=== PATIENT | female | born 1930 | race Caucasian/White ===

== ENCOUNTER 2017-10-30 14:27 | Emergency (ER) | payer OTHER ==
[~2017-10-30] VITALS: Ht 152.4 cm; Wt 79.4 kg
[~2017-10-30 14:27] MED LIST: ACTONEL150 MG PO; AMBIEN 5 MG TABL5 M1 PO; AMOXICILLIN 50500 MG PO; ANASPAZ0.125 MG SL; ANASTROZOLE1 MG PO; ASPIR 8181 MG PO; ASPIRIN EC81 M1 PO; BENTYL 10 MG CA10 MG; CALCIUM 500 +1 EAC5 PO; CALCIUM OYSTER500 MG PO; CARDIZEM CD240 MG PO; CLARITIN10 MG PO; DILTIAZEM ER180 M1 PO; FOSAMAX 70 MG T70 MG PO; LEVSIN0.125 MG PO; LOSARTAN-HCTZ1 EAC3 PO; MOBIC7.5 MG PO; MULTIVITAMINS1 EAC7 PO; OMEGA-31000 MG PO; ONGLYZA2.5 MG PO; PARAFON FORTE500 M2 PO; PROAIR RESPICL90 MCG IH; SIMVASTATIN10 MG PO; TOPROL XL200 MG PO; TRAMADOL 50 MG50 MG PO; TRAMADOL HCL50 MG PO; ZOLPIDEM TART12.5 M1 PO
[2017-10-30] MEDS ORDERED: HYDROCODONE-AP1 EAC6 PO (16:07)
[2017-10-30 16:17] VITALS: BP 164/78
== END 2017-10-30 16:19 | disposition home or self-care (01) ==
LOC: ER 14:27
DX: S52.591A Other fractures of lower end of right radius, initial encounter for closed fracture (principal); I10 Essential (primary) hypertension; E11.9 Type 2 diabetes mellitus without complications; Z88.6 Allergy status to analgesic agent; W18.49XA Other slipping, tripping and stumbling without falling, initial encounter; Y93.89 Activity, other specified; Y92.89 Other specified places as the place of occurrence of the external cause; Y99.8 Other external cause status

== ENCOUNTER 2017-11-06 05:17 | Day surgery (SDC) | payer OTHER ==
[~2017-11-06] VITALS: Ht 149.9 cm; Wt 84.8 kg
--- NOTE | ~2017-11-06 | O ---
[address] [address] OPERATIVE REPORT Name: ALIVIA JUAREZ Room #: 150-2 [facility]..#: [id number] Admission: 11/06/17 Attend Phys: Eliud Polo MD Discharge: Date of : 32 Report #: [id number] THIS REPORT FOR: //name// CC: Maura Ana Polo DATE OF SERVICE: 11/06/2017. SERVICE: Orthopedics. FACILITY: [facility]. SURGEON: Eliud Polo MD. CRANBERRY BOG SUPERVISOR: None. PREOPERATIVE DIAGNOSIS: Displaced comminuted intraarticular right distal radius fracture. POSTOPERATIVE DIAGNOSIS: Displaced comminuted intraarticular right distal radius fracture. PROCEDURE: Open reduction and internal fixation, right distal radius fracture. COMPLICATIONS: None. DRAINS: None. SPECIMENS: None. SURGEON: Dr. Polo. ANESTHESIA TYPE: General. ESTIMATED BLOOD LOSS: 10 mL. FINDINGS: 1. Accumed 6-hole distal plate utilized. 2. Multiple planes of x-ray to confirm appropriate positioning with extraarticular screw placement. HISTORY AND INDICATIONS: The patient is an 86-year-old female who sustained a fall last week. She had a severely comminuted displaced right distal radius fracture and was placed in a splint Emergency Room and was sent to for followup. She had risks, benefits, alternatives and indications for surgical versus nonsurgical treatment explained to her and elected to undergo open reduction and internal fixation based on the proceed benefits of surgical [address] [address] OPERATIVE REPORT Name: ALIVIA JUAREZ Room #: [facility]2 [facility]#: [id number] Admission: 11/06/17 Attend Phys: Eliud Polo MD Discharge: Date of : 32 Report #: [id number] fixation. Risks, benefits, alternatives and indications for surgery were discussed with her in detail, risks include but not limited to pain, bleeding, infection, injury to nerves or blood vessels, persistent pain despite surgical intervention, failure of any repairs, reconstructions, progression of any preexisting chondral injury, stiffness, need for further surgery as well as complications related to anesthesia such as stroke, heart attack, pulmonary complications, thromboembolic disease and . We also discussed malunion and nonunion. Despite the risks, she wished to proceed. DESCRIPTION OF PROCEDURE: After the right upper extremity was correctly identified as the operative extremity, the patient was taken to the operating room where general anesthesia was induced without complication. She was padded appropriately. Prophylactic antibiotics were administered at appropriate time. Right upper extremity was then prepped and draped in standard sterile fashion. Time-out procedure was performed. An Esmarch was used to exsanguinate and the tourniquet was inflated to 200 mmHg. A standard volar approach to the wrist was made through the flexor carpi radialis tendon sheath. The FPL was identified and was retracted allowing access to the pronator quadratus and the watershed line which was palpated and visualized. The soft tissue was then reflected off of the volar cortex of the distal radius and the fracture was visualized and exposed. There was a highly comminuted distal radius fracture that was shortened and displaced. There was a free lunate facet articular fragment, which was removed, hematoma was irrigated and then this fragment was placed back into the joint to support the carpus. The plate was provisionally fixed to the shaft and the reduction maneuver was performed and provisional fixation was achieved. The radial styloid was actually displaced still due to both the coronal and sagittal fracture line and so I adjusted the plate, performed reduction maneuver on the radius styloid specifically, re-fixed the plate to appropriate position and then placed a radial styloid screws using fluoroscopy to assist, then the distal rows screws were placed and throughout multiple planes of C-arm were used to confirm that the screws did not penetrate the articular surface. Then, the final screws were completed in the distal segment and then the shaft screws were completed as well. Final x-rays were taken, then the wound was copiously irrigated. The pronator quadratus and fascia was closed over the volar aspect of the plate with 0 Vicryl suture. The skin was closed with 3-0 Vicryl followed by 3-0 nylon. At this point, a 20mL injection was performed with a 50:50 mixture of 0.25% bupivacaine and 1% lidocaine without epinephrine and sterile dressing was applied followed by a short arm well-padded splint. The patient was awakened from anesthesia and taken to recovery room in stable condition. There were no complications and all counts were recorded as correct. <ELECTRONICALLY SIGNED> By: Eliud Polo MD 11/06/17 1039 1005 1033 Eliud Polo MD /nt
--- NOTE | ~2017-11-06 | EKG ---
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
[~2017-11-06 05:17] MED LIST changes: +HYDROCODONE-AP1 EAC6 PO; +KEPPRA 500 MG500 M1 PO
[2017-11-06 06:30] VITALS: BP 142/67
[2017-11-06 06:44] LABS: CALCIUM 9.6 mg/dL (8.5-10.1); CREATININE 0.9 mg/dL (0.6-1.0); POTASSIUM 3.8 mmol/L (3.5-5.1)
[2017-11-06 10:26] VITALS: BP 142/67
== END 2017-11-06 10:52 | disposition home or self-care (01) ==
LOC: OR 05:17 → TBA 05:17 → OR 10:52
PROVIDERS: Orthopaedic Surgery Sports Medicine
DX: S52.571A Other intraarticular fracture of lower end of right radius, initial encounter for closed fracture (principal); I10 Essential (primary) hypertension; E11.9 Type 2 diabetes mellitus without complications; Z85.3 Personal history of malignant neoplasm of breast; Z90.710 Acquired absence of both cervix and uterus; Z87.440 Personal history of urinary (tract) infections; Z98.890 Other specified postprocedural states; Z88.6 Allergy status to analgesic agent; Z79.82 Long term (current) use of aspirin; Z79.899 Other long term (current) drug therapy; Z79.891 Long term (current) use of opiate analgesic; X58.XXXA Exposure to other specified factors, initial encounter; Y93.89 Activity, other specified; Y92.89 Other specified places as the place of occurrence of the external cause; Y99.8 Other external cause status
CPT/HCPCS: 50010; 50101; 50386; 51736; 55430; 56526; 56527; 56528; 57091; 62110; 62900; 70005

== ENCOUNTER 2017-11-09 13:19 | Inpatient (IN) | payer OTHER ==
[~2017-11-09] VITALS: Ht 149.9 cm; Wt 80.7 kg
--- NOTE | ~2017-11-09 | EKG ---
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: CARLITO : 1930 Requested By: Lori Mckoy Order Number: [id number] MD: Brian Luna Measurements Intervals [place] Rate: 94 P: 45 RI: 158 QRS: -7 QRSD: 82 T: 33 QT: 353 QTc: 442 Interpretive Statements Sinus rhythm Probable left atrial enlargement Probable left ventricular hypertrophy Inferior infarct, old Compared to ECG 11/06/2017 06:33:28 No change Electronically Signed On 11-10-2017 9:46:04 RADIO INTERFERENCE TROUBLE SHOOTER by Brian Luna [email or web address] <ELECTRONICALLY SIGNED> By: Brian Luna MD 11/10/17 0946 1348 1348 MD ALEX Sarah
--- NOTE | ~2017-11-09 | HC ---
[facility] [place] [address] CONSULTATION Name: ALIVIA JUAREZ Room #: 430-P ADM IN M.R.#: [id number] Admission: 11/09/17 Attend Phys: Enrique Parker Discharge: Date of : 32 Report #: [id number] THIS REPORT FOR: //name// CC: Maura Parker TYPE OF REPORT: Pulmonary consultation. REFERRING PHYSICIAN: Enrique Parker M.D. REASON FOR REFERRAL: Hypoxia. HISTORY OF PRESENT ILLNESS: The patient is an 86-year-old white female presented to the Emergency Room with dyspnea. A pulmonary consultation was requested. She states that she fell in about a week ago while she was at a bingo. She underwent a wrist surgery a few days ago. By yesterday she began to develop chest pain and dyspnea. For that reason, she presented to the Emergency Room. CT chest angiogram was negative for pulmonary embolus. A small left upper lobe nodule was seen measuring less than 1 cm in diameter. No infiltrates were noted. Presently, she feels better. She denies any productive cough, night sweats or chills. The patient also states that for the past several years. She has had trouble with wheezing whenever she developed bronchitis. She will get wheezes with exertion particularly when she goes down to the basement. She has never been diagnosed with asthma. The patient states that she has never smoked but has been exposed to extensive secondhand smoke from a family including her and her father. PAST MEDICAL HISTORY: Notable for recent fall as mentioned above, sustaining a right wrist injury, status post surgery, hypertension and seizure disorder in 2016. PAST SURGICAL HISTORY: Left breast lumpectomy, felt to be benign; hysterectomy and left thigh lesion excision. ALLERGIES: TRAMADOL, which causes seizure disorder. HOME MEDICATIONS: Diltiazem, Ambien, simvastatin, losartan, Toprol, Mobic, aspirin, Levsin and Keppra. FAMILY HISTORY: Noncontributory. [facility] [address] [place] [address] CONSULTATION Name: ALIVIA JUAREZ Room #: 430-P [facility] IN M.R.#: [id number] Admission: 11/09/17 Attend Phys: Enrique Parker Discharge: Date of : 32 Report #: [id number] SOCIAL HISTORY: She has never smoked but has been exposed to extensive secondhand smoke as mentioned above. She denies any alcohol use. REVIEW OF SYSTEMS: As mentioned above, otherwise 10-point system review negative. PHYSICAL EXAMINATION: GENERAL: She is awake and alert, in no apparent distress. VITAL SIGNS: Temperature is 98 degrees Fahrenheit, pulse is 67, respiratory rate is 20, blood pressure 130/51 mmHg and saturation 100%. HEENT: Normocephalic and atraumatic. NECK: Supple, without any lymphadenopathy or thyromegaly. CHEST: Breath sounds are moderate with mild expiratory wheezes. No obvious rales. CARDIOVASCULAR: Normal S1 and S2. There are no murmurs or gallops. There is no JVD. There is no carotid bruit. Pulses are 2+/4+ bilaterally. ABDOMEN: Soft and nontender. No organomegaly or masses felt. GENITOURINARY: Deferred. RECTAL: Deferred. EXTREMITIES: There is no edema, cyanosis or clubbing. The right upper extremity is in a cast. LABORATORY DATA: CT chest angiogram as mentioned above showing no evidence of pulmonary embolus or infiltrates. A small left upper lobe nodule is seen measuring 4 mm in diameter. It is located in the lateral part of the left upper lobe. Electrolytes are normal. WBC 5500, hemoglobin is 12.8, platelets are normal and no evidence of bandemia. Arterial blood gas revealed pH 7.41, pCO2 of 59 and pO2 44 on room air. IMPRESSION: 1. Acute respiratory failure. Arterial blood gas suggests chronic hypercapnia along with acute hypoxia. The patient has no known chronic lung disease or sleep disordered breathing other than history of bronchitis, resulting in bronchospasm. The chronic hypercapnia suggests possible hypoventilation syndrome including sleep disorders. I do not think it is related to obstructive lung disease. 2. Bronchospasm and dyspnea. The patient may have a component of asthma with possible bronchitis. She has long history of bronchitis associated with wheezing and dyspnea. Outpatient pulmonary function will be helpful. 3. Recent surgery involving the right wrist. No evidence of pulmonary embolus. RECOMMENDATIONS: Agree with current care including corticosteroids, bronchodilators, and antibiotics. We will repeat arterial blood gas. With a recent surgery and hypoventilation related to narcotic use may be the cause. [address] [address] CONSULTATION Name: ALIVIA JUAREZ Room #: 430-P [facility] IN M.R.#: [id number] Admission: 11/09/17 Attend Phys: Enrique Parker Discharge: Date of : 32 Report #: [id number] DVT and GI prophylaxis will be addressed. Thank you for the consultation. <ELECTRONICALLY SIGNED> By: Jack Chester MD 11/11/17 1600 1441 0022 Jack Chester MD /nt
[2017-11-09 13:20] VITALS: BP 147/69
[2017-11-09 13:47] LABS: HEMATOCRIT 37.6 % (37.0-47.0); HEMOGLOBIN 12.8 gm/dL (12.0-15.0); MANUAL DIFF YES; MCH 29.5 pg (26.0-34.0); MCV 86.8 fL (80.0-100.0); PLATELET COUNT 234 thou/uL (150-400); RBC 4.33 mil/uL (4.20-5.00); RDW 13.7 % (10.5-14.5); WBC 5.5 thou/uL (4.0-11.0)
[2017-11-09 13:56] LABS: ANION GAP 7 mmol/L (7-16); BUN 25 mg/dL (7-18); CALCIUM 8.9 mg/dL (8.5-10.1); CHLORIDE 93 mmol/L (98-107); CO2 35 mmol/L (21-32); CREATININE 0.9 mg/dL (0.6-1.0); GLUCOSE 149 mg/dL (74-106); SODIUM 135 mmol/L (136-145)
[2017-11-09 14:04] LABS: TROPONIN-I < 0.04 ng/mL (<0.06)
[2017-11-09 14:10] LABS: ABSOLUTE NEUTROPHILS 4.6 thou/uL (1.4-8.2); TOTAL CELL COUNT 100
[2017-11-09 15:35] LABS: URINE BILIRUBIN NEGATIVE (Negative); URINE BLOOD NEGATIVE (Negative); URINE COLOR YELLOW; URINE GLUCOSE-RANDOM* NEGATIVE (Negative); URINE KETONES NEGATIVE (Negative); URINE LEUKOCYTES-REFLEX NEGATIVE (Negative); URINE PROTEIN (DIPSTICK) 1+ (Negative); URINE UROBILINOGEN 0.2 E.U./dl (0.2-1.0)
[2017-11-09 15:38] LABS: SQUAMOUS >10 Many /LPF (0-3)
[2017-11-09 15:39] LABS: CRYSTALS None Seen /LPF (None Seen); HYALINE CASTS 0-3 Few /LPF (None Seen); URINE RBC 0-2 Rare /HPF (0-2); URINE WBC-REFLEX 0-5 Rare /HPF (0-5)
[2017-11-09 16:37] VITALS: BP 137/55
[2017-11-09 16:54] LABS: ABG SAMPLE TYPE ARTERIAL; BE(vivo) 10.7 mmol/L (-2 to +3); HCO3 37.5 mmol/L (22.0-26.0); LACTATE 1.12 mmol/L (0.5-2.0); O2(CT) 14.3 mL/dL (15.0-23.0); O2Hb 78.3 % (92.0-98.0); PCO2 59.9 mmHg (35.0-45.0); STICK SITE L.RADIAL; pH 7.415 (7.360-7.450); sO2 79.2 % (92.0-98.0); tCO2 39.4 mmol/L (24.0-30.0)
[2017-11-09 17:18] VITALS: BP 130/62
[2017-11-09 17:54] VITALS: BP 161/67
[2017-11-09 20:00] VITALS: BP 144/63
[2017-11-10 04:30] VITALS: BP 130/43
[2017-11-10 07:45] VITALS: BP 130/51
[2017-11-10 21:38] VITALS: BP 145/51
[2017-11-10 23:54] VITALS: BP 121/51
[2017-11-11 03:31] VITALS: BP 135/63
[2017-11-11 05:24] LABS: ABG SAMPLE TYPE ARTERIAL; BE(vivo) 9.6 mmol/L (-2 to +3); LACTATE 1.09 mmol/L (0.5-2.0); O2(CT) 16.3 mL/dL (15.0-23.0); O2Hb 93.5 % (92.0-98.0); PCO2 57.4 mmHg (35.0-45.0); pH 7.415 (7.360-7.450); sO2 94.5 % (92.0-98.0); tCO2 37.7 mmol/L (24.0-30.0)
[2017-11-11 05:26] LABS: STICK SITE L.RADIAL
[2017-11-11 07:49] VITALS: BP 144/66
[2017-11-11 15:17] VITALS: BP 129/52
[2017-11-12 03:00] VITALS: BP 149/58
[2017-11-12 04:38] VITALS: BP 158/75
[2017-11-12 09:01] VITALS: BP 151/67
[2017-11-12] MEDS ORDERED: CEFUROXIME500 MG PO (10:16)
[2017-11-12] MEDS ORDERED: PREDNISONE 20 M20 MG PO (10:17)
[2017-11-12] MEDS ORDERED: BACTRIM DS TAB1 EACH PO (10:23)
[2017-11-12 10:53] VITALS: BP 151/67
[2017-11-12 11:01] VITALS: BP 151/67
== END 2017-11-12 16:05 | disposition home health service (06) | DRG 871 ==
LOC: ER 13:19 → EROBS 16:36 → 4E 16:36 → ENTRNSPT 11-12 14:56 → 4E 11-12 16:05
PROVIDERS: Emergency Medicine; Internal Medicine Pulmonary Disease
DX: A41.9 Sepsis, unspecified organism (principal); J96.02 Acute respiratory failure with hypercapnia; J96.01 Acute respiratory failure with hypoxia; N39.0 Urinary tract infection, site not specified; E66.2 Morbid (severe) obesity with alveolar hypoventilation; J20.9 Acute bronchitis, unspecified; E11.9 Type 2 diabetes mellitus without complications; I10 Essential (primary) hypertension; E78.5 Hyperlipidemia, unspecified; S62.101A Fracture of unspecified carpal bone, right wrist, initial encounter for closed fracture; G40.909 Epilepsy, unspecified, not intractable, without status epilepticus; Z77.22 Contact with and (suspected) exposure to environmental tobacco smoke (acute) (chronic); Z79.899 Other long term (current) drug therapy; Z22.322 Carrier or suspected carrier of Methicillin resistant Staphylococcus aureus; Z90.710 Acquired absence of both cervix and uterus; Z88.8 Allergy status to other drugs, medicaments and biological substances; W18.39XA Other fall on same level, initial encounter; Y93.89 Activity, other specified; Y92.89 Other specified places as the place of occurrence of the external cause; Y99.8 Other external cause status; Z68.35 Body mass index [BMI] 35.0-35.9, adult
CPT/HCPCS: 10183

== ENCOUNTER → 2019-05-25 | Outpatient (CLI) | payer OTHER ==
[~2019-05-25] MED LIST changes: +BACTRIM DS TAB1 EACH PO; +CEFUROXIME500 MG PO; +PREDNISONE 20 M20 MG PO
== END ==
LOC: RAD 09:35
DX: J44.9 Chronic obstructive pulmonary disease, unspecified (principal); I11.9 Hypertensive heart disease without heart failure; Z88.6 Allergy status to analgesic agent

== ENCOUNTER → 2020-07-15 | Outpatient (CLI) | payer OTHER ==
[~2020-07-15] MED LIST changes: +LORCET 5-325 M1 EACH PO; +PRAVACHOL 20 MG20 M1 PO; +PROAIR HFA8.5 GM INH; +ROPINIROLE HCL2 MG PO; +TRAZODONE HCL100 MG PO
== END ==
LOC: LAB 08:19
PROVIDERS: ATTEND Surgery
DX: Z01.812 Encounter for preprocedural laboratory examination (principal); Z20.828 Contact with and (suspected) exposure to other viral communicable diseases

== ENCOUNTER 2020-07-20 08:13 | Day surgery (SDC) | payer OTHER ==
[~2020-07-20] VITALS: Ht 149.9 cm; Wt 81.6 kg
--- NOTE | ~2020-07-20 | O ---
[facility] [place] [address] OPERATIVE REPORT Name: ALIVIA JUAREZ Room #: 150-4 [facility]#: [id number] Admission: 07/20/20 Attend Phys: Americo Velásquez MD Discharge: Date of : 32 Report #: [id number] THIS REPORT FOR: cc: Maura Perez MD,Maura Velásquez,Americo Guerrero MD ~ CC: Maura Velásquez DATE OF SERVICE: 07/20/2020 PREOPERATIVE DIAGNOSIS: Recently diagnosed right breast cancer, invasive ductal carcinoma, measuring about 1.7 cm. POSTOPERATIVE DIAGNOSIS: Recently diagnosed right breast cancer, invasive ductal carcinoma, measuring about 1.7 cm. PROCEDURES PERFORMED: Right lumpectomy, right sentinel node biopsy. ANESTHESIA: General anesthesia. COMPLICATIONS: None. ESTIMATED BLOOD LOSS: 20 mL. PROCEDURE NOTE: With the patient under general anesthesia, the right breast and axilla was prepped and draped in sterile fashion. Prior to the prep, I listened to the axilla with the Neoprobe and there was no significant activity detected in the axilla. The nuclear activity was identified at the site of injection in a periareolar area. I went ahead and placed 2 mL of Lymphazurin in the subcutaneous subdermal tissue and subareolar. Massage was performed. Then, the breast was prepped and draped. Timeout was performed. The patient did receive preoperative IV antibiotic. The tumor mass was identified preoperatively with ultrasound. This was marked with the ultrasound. The ellipse of skin over this was excised. Dissection was carried superiorly, medially, laterally and then inferiorly. The skin was from the underlying breast tissue and subcutaneous tissue. Dissection was carried to the upper margins and then dissected downward. Fascia was excised adjacent to the mass. The lumpectomy was completed. Specimen was sent to Radiology. The clip was identified in the biopsy site. The breast lumpectomy specimen was oriented for pathology with a short stitch superiorly, long stitch laterally. The skin was left over the mass. Hemostasis obtained. Dissection was then carried out for the axillary lymph node. Again, no significant activity was heard with the Neoprobe. Incision was made about 4 cm in the axilla. The edge of the pectoralis muscle was identified. This then led to the axillary content. Dissection of the [address] [address] OPERATIVE REPORT Name: ALIVIA JUAREZ Fei Room #: 150-4 [facility]..#: [id number] Admission: 07/20/20 Attend Phys: Americo Velásquez MD Discharge: Date of : 32 Report #: [id number] axilla did reveal a lymphatic channel with the dye in it. This led to the sentinel node edge area. The node did not have any color and also had very low activity on the Neoprobe, about reading of 10. There appears to be two lymph node here, one is pretty fatty replaced and the other one is small and fairly hard feeling, albeit a calcified node. Lymph node was sent to pathologist. On touch prep, both of these were negative. The lymph node was found to be calcified making this hard. No obvious metastasis. Irrigation was performed, hemostasis obtained. A clip had been used to divide a small vessel superiorly and then also clipped around the side of the lymph node. Hemostasis obtained. The subcutaneous tissue was closed. An axillary envelope was closed with 3-0 PDS. Skin was closed with 5-0 PDS. The subcutaneous and the lumpectomy site was also closed with 3-0 PDS. Skin was closed with 4-0 PDS. Dermabond was applied, 4 x 4 dressing was applied. The patient tolerated the procedure well and was taken to recovery room. By: 2138 2154 Americo Velásquez MD /nt
--- NOTE | ~2020-07-20 | H ---
[facility] [place] [address] HISTORY AND PHYSICAL Name: ALIVIA UJAREZ Room #: 150-4 [facility]#: [id number] Admission: 07/20/20 Attend Phys: Americo Velásquez MD Discharge: Date of : 32 Report #: [id number] THIS REPORT FOR: cc: Maura Perez MD,Maura Velásquez,Americo Guerrero MD ~ CC: Maura Velásquez DATE OF SERVICE: 07/20/2020 PREOPERATIVE DIAGNOSIS: Right breast cancer, recently diagnosed. PATIENT'S HISTORY: The patient is an 89-year-old who is here for lumpectomy after recently being found to have a mass in her right breast, which is measured around 1.6 cm. Ultrasound-guided biopsy was performed, which did show an invasive ductal carcinoma. ER/MS is highly positive, HER-2 negative and Ki67 is low at 2%. The patient did have an MRI performed and the lesion is isolated. No other abnormality identified. This was measured at 1.7 cm. The mass is palpable and she is here for lumpectomy. I did not recommend a mastectomy since this tumor is pretty high in the upper inner part of the breast at the 1 o'clock position. The patient does understand that she may need to have radiation treatment after this. 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 Lumpectomy was performed and did not require radiation treatment. PAST MEDICAL HISTORY: The patient has a history of asthma. She uses oxygen at night. Possible sleep apnea. PATIENT'S MEDICATIONS: She is on olmesartan 40/12.5, Keppra 500 mg, metoprolol for blood pressure, meloxicam, pravastatin, Telzen for blood pressure. She takes Lasix, hydrocodone, hyoscyamine as needed. Albuterol inhaler, trazodone. ALLERGIES: SHE IS ALLERGIC TO TRAMADOL. PAST SURGICAL HISTORY: Left lumpectomy. FAMILY HISTORY: Possibly her mother had breast cancer. SOCIAL HISTORY: The patient does not smoke or drink. REVIEW OF SYSTEMS: No chest pain, shortness of breath or palpitation. PHYSICAL EXAMINATION: GENERAL: The patient is an elderly female, in no acute distress. [address] [address] HISTORY AND PHYSICAL Name: ALIVIA JUAREZ Room #: 150-4 [facility] M..#: [id number] Admission: 07/20/20 Attend Phys: Americo Velásquez MD Discharge: Date of : 32 Report #: [id number] HEENT: Pupils are reactive to light. Extraocular muscles are intact. NECK: Soft and supple. She does have a left forehead lesion with a scab over it. LUNGS: Clear to auscultation. No active wheezes. HEART: Regular rate and rhythm. No murmur or gallop. ABDOMEN: Soft, nondistended, nontender. BREAST: The patient does have an atrophic breast. The mass is a 1 o'clock position and upper inner quadrant. Fairly far from the nipple areolar complex. No supraclavicular or axillary adenopathy. She did have an almost mirror image scar on the left, which was from the lumpectomy for the DCIS on that side. EXTREMITIES: No cyanosis, clubbing or edema. IMPRESSION: The patient with a newly identified mass of the left breast on mammogram. This was biopsied, came back with invasive ductal carcinoma, probably 1.7 cm in size. She is here for left lumpectomy, sentinel node biopsy. The patient understands treatment. She does not really want to have a mastectomy and technically mastectomy is more difficult due to the location of the lesion being high up in her breast. The patient understands that she may have to have radiation treatment after this. This on MRI does shows fairly close to the chest wall. We will likely excise a portion of the chest wall with this. By: 0825 0849 Americo Velásquez MD /nt
[~2020-07-20 08:13] MED LIST changes: -LORCET 5-325 M1 EACH PO
[2020-07-20 08:48] LABS: HEMATOCRIT 42.8 % (37.0-47.0); HEMOGLOBIN 14.5 gm/dL (12.0-15.0)
[2020-07-20 09:02] LABS: CALCIUM 9.5 mg/dL (8.5-10.1); CREATININE 0.8 mg/dL (0.6-1.0)
[2020-07-20 12:13] VITALS: BP 159/73
[2020-07-20] MEDS ORDERED: LORCET 5-325 M1 EACH PO (14:17)
--- NOTE | 2020-07-20 14:42 | EKG ---
[facility] [place] [address] ELECTROCARDIOGRAM REPORT Name: ALIVIA JUAREZ Room #: 150-4 [facility]..#: [id number] Admission: 07/20/20 Attend Phys: Americo Velásquez MD Discharge: Date of : 32 Report #: [id number] THIS REPORT FOR: cc: Maura Perez MD, Cora A. MD Lammoglia, Francisco J. 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1930 Requested By: Americo Velásquez Order Number: [id number] MD: Gonzalo Sierra Measurements Intervals [place] Rate: 69 P: 21 CA: 205 QRS: -10 QRSD: 98 T: 24 QT: 429 QTc: 460 Interpretive Statements Sinus rhythm Early transition CA at the upper limits of normal Nonspecific ST-T wave Compared to ECG 11/09/2017 13:48:26 Initial deflection in 3 aVF are positive different than prior tracing Electronically Signed On 07-20-2020 14:42:29 CDT by Gonzalo Sierra [email or web address] <ELECTRONICALLY SIGNED> By: Gonzalo Sierra MD 07/20/20 1442 1 0852 Gonzalo Sierra MD /EPI
[2020-07-20 14:49] VITALS: BP 159/73
--- NOTE | 2020-07-27 11:07 | PATH ---
[facility] [place] [address] PATHOLOGY RPT PROCEDURE Name: HELENA JUAREZ Room #: DEP [facility].#: [id number] Admission: 07/20/20 Date of : 34 Discharge: 07/20/20 Report #: [id number] Path Case #: [id number] [facility] Accession Number: [id number] . 01 Material submitted: . PART A: lymph node - RIGHT SENTINEL NODE. Modifiers: right PART B: breast - RIGHT BREAST MASS SHORT STITCH SUPERIOR, LONG STITCH LATERAL. Modifiers: right . 01 Clinical history: . LUMPECTOMY WITH AXILLARY NODE DISECTION/NUC/LY RIGHT BREAST CANCER . 02 Frozen section diagnosis: . FROZEN SECTION DIAGNOSIS: (Cuca Davidson M.D.): . TPA1 and FSA1. Right sentinel lymph node, biopsy: - Two lymph nodes; one calcified node limiting frozen section (touch preparation made for this reason). - No macrometastases identified on FS slide. . Findings of this case are discussed with Dr. Americo Velásquez and a written report is placed in the patient's chart. . Frozen section performed at [facility], [facility] [address], [place] [address]. . . FROZEN SECTION GROSS DESCRIPTION: Specimen A is received fresh from the OR labeled with the patient's name, and "right sentinel node" consists of a fragment of fatty tissue which upon further dissection shows a 1.8 x 1.5 x 1.0 cm fatty replaced node and a 1.1 x 1.1 x 1.0 cm oval calcified node. Both nodes are bisected, a touch preparation is made and one-half of each node is submitted for frozen section as FSA1, this is subsequently submitted for permanent sections as A1. The unfrozen portion is submitted entirely for permanent sections only as A2. (IUV/db; 07/20/2020) IZV/LBQ . 02 Diagnosis: A. Lymph nodes (2), right sentinel node, dissection: - Two lymph nodes showing reactive changes. - Negative for isolated tumor cells, micrometastases or macrometastases. . B. Breast, right, right breast lumpectomy: - INVASIVE MODERATELY DIFFERENTIATED DUCTAL ADENOCARCINOMA, [address] [address] PATHOLOGY RPT PROCEDURE Name: HELENA JUAREZ Room #: DEP [facility].#: [id number] Admission: 07/20/20 Date of : 34 Discharge: 07/20/20 Report #: [id number] Path Case #: [id number] GRADE II/III, MEASURING 1.8 CM IN GREATEST DIMENSION. - FOCAL PERINEURAL INVASION IDENTIFIED. - Negative for lymph-vascular space invasion. - Margins of resection free of malignancy; closest anterior and posterior margins are 0.8 cm away. - Overlying skin showing reactive changes. (IUV/db; 07/26/2020) . . Surgical Pathology Cancer Case Summary . Protocol posting date: December 2019 . INVASIVE CARCINOMA OF THE BREAST: . . Specimen Identification Procedure ___ Excision (less than total mastectomy) . Specimen Laterality ___ Right . Tumor Site: Clock position: 1 o'clock . Tumor Size ___ Greatest dimension of largest invasive focus >1 mm (millimeters): 18 mm . Histologic Type ___ Invasive carcinoma of no special type (ductal, not otherwise specified) . Histologic Grade (Dundas Histologic Score) Glandular (Acinar)/Tubular Differentiation ___ Score 3 (<10% of tumor area forming glandular/tubular structures) Nuclear Pleomorphism ___ Score 2 (cells larger than normal with open vesicular nuclei, visible nucleoli, and moderate variability in both size and shape) Mitotic Rate ___ Score 1 (< or equal to 3 mitoses per mm2) . Tumor Focality ___ Single focus of invasive carcinoma . 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 Tumor Extension Skin ___ Not involved . Nipple ___ Not applicable/ not sampled . Margins . Invasive Carcinoma Margins (required only if residual invasive carcinoma is present in specimen) ___ Uninvolved by invasive carcinoma Distance from closest margin (millimeters): 8mm Specify closest margin: anterior and posterior . DCIS Margins (required only if DCIS is present in specimen) ___ Uninvolved by DCIS (required only if residual DCIS is present in specimen) Distance from closest margin (millimeters): 20 mm Specify closest margin: anterior . . Regional Lymph Nodes . ___ Uninvolved by tumor cells Number of Lymph Nodes Examined: 2 Number of [place]t Nodes Examined:2 . Treatment Effect ___ No known presurgical therapy . Lymphovascular Invasion ___ Not identified . Dermal Lymphovascular Invasion ___ Not identified . Pathologic Stage Classification (pTNM, AJCC 8th Edition) Note: Reporting of pT, pN, and (when applicable) pM categories is based on information available to the pathologist at the time the report is issued. . Primary Tumor (Invasive Carcinoma) (pT) ___ pT1c: Tumor >10 mm but < or equal to 20 mm in greatest dimension . [address] [address] PATHOLOGY RPT PROCEDURE Name: HELENA JUAREZ Room #: DEP [facility] Nevaeh#: [id number] Admission: 07/20/20 Date of : 34 Discharge: 07/20/20 Report #: [id number] Path Case #: [id number] Category (pN) ___ (sn): [place] node(s) evaluated ___ pN0: No regional lymph node metastasis identified . Distant Metastasis (pM) (required only if confirmed pathologically in this case) ___ pMx: Unknown LBQ 07/26/2020 1737 Local . 02 Comment: Properly controlled AE1/AE3 immunohistochemical stains are performed on blocks A1 and A2 and show no isolated tumor cells, micrometastases or macrometastases. (IUV/db; 07/26/2020) . 02 Electronically signed: . Cuca Davidson MD, Pathologist NPI- [id number] . 01 Gross description: . A. SEE FROZEN SECTION GROSS DESCRIPTION. . B. The specimen is received in formalin, labeled "Helena Juarez, right breast, short superior, long lateral". Received is a 78 g oriented lumpectomy specimen measuring 7.4 cm from medial to lateral, 6.8 cm from superior to inferior, and 3.6 cm from anterior to posterior. There is no attached ellipse of pale gonsalez, grossly unremarkable skin measuring 5.4 x 1.7 cm. The specimen is inked as follows: Superior-blue, inferior-green, lateral-red, medial-yellow, anterior (surrounding the skin)-black, posterior-orange. The specimen is sectioned from lateral to medial aspects revealing a pale pink to white stellate mass, with a metallic biopsy coil present, measuring 1.8 x 1.6 x 1.0 cm in greatest dimensions. This mass is 2.4 cm from the lateral margin, 3.2 cm from the medial margin, 0.8 cm from the anterior margin, 1.0 cm from the posterior margin, 3.5 cm from the superior margin, and 0.9 cm from the inferior margin. The remainder of the specimen displays bright yellow fibrofatty cut surfaces with no additional nodules or lesions noted grossly. The specimen is submitted representatively as follows: . B1-B2 entire lateral margin, bisected B3-B4 entire medial margin, bisected B5-B11 entire mass submitted from lateral to medial aspects. . The cold ischemic time is 22 minutes. The total formalin fixation time is 34 hours and 9 minutes. ([facility]; 07/21/2020) . [address] [address] PATHOLOGY RPT PROCEDURE Name: HELENA JUAREZ Room #: DEP [facility]..#: [id number] Admission: 07/20/20 Date of : 34 Discharge: 07/20/20 Report #: [id number] Path Case #: [id number] After initial microscopic examination, a enrollment eligibility representative section of skin is submitted in cassette B12. ([facility]; 07/26/2020) [facility] 07/26/2020 1143 Local . 02 Pathologist provided ICD-10: C50.911 . 02 CPT . 668078, 001224, I78542, 829871 Specimen Comment: A courtesy copy of this report has been sent to [phone] Specimen Comment: Report sent to Performed at: 01 [facility] [address], [place] [id number] MD Vicente Lisa MD Phone: [phone] Performed at: [address] [id number] MD Cuca Davidson MD Phone: [phone]
== END 2020-07-20 15:50 | disposition home or self-care (01) ==
LOC: OR 08:13 → TBA 08:14 → OR 08:51
PROVIDERS: ATTEND Surgery
DX: C50.911 Malignant neoplasm of unspecified site of right female breast (principal); R59.0 Localized enlarged lymph nodes; I10 Essential (primary) hypertension; E78.5 Hyperlipidemia, unspecified; J45.909 Unspecified asthma, uncomplicated; Z98.890 Other specified postprocedural states; Z79.899 Other long term (current) drug therapy; Z90.710 Acquired absence of both cervix and uterus; Z85.3 Personal history of malignant neoplasm of breast; Z85.828 Personal history of other malignant neoplasm of skin; Z88.8 Allergy status to other drugs, medicaments and biological substances
CPT/HCPCS: 50010; 50101; 50386; 50417; 51301; 54118; 56455; 56524; 56525; 56526; 62110; 62900; 70005

== ENCOUNTER → 2022-01-08 | Outpatient (CLI) | payer OTHER ==
[~2022-01-08] VITALS: Ht 149.9 cm; Wt 86.2 kg
[~2022-01-08] MED LIST changes: +AROMASIN25 MG PO; +BENICAR40 MG PO; +FUROSEMIDE 20 M20 MG PO; +LORATIDINE 10 M10 M1 PO; +LORCET 5-325 M1 EACH PO; +OLMESARTAN-HCT1 EAC2 PO
[2022-01-08 14:05] VITALS: BP 176/78
--- NOTE | 2022-01-08 14:35 | NUR ---
Pain Clinic Assessment: 1. History of Osteoarthritis: SPINE AND JOINTS History of Rheumatoid Arthritis: DENIES 2. Height: 4 ft. 11 in. 149.9 cm. Weight: 190.0 lb. oz. 86.184 kg. Patient's BMI: 38.4 3. Vital Signs: BP: 176/78 Pulse: 73 Resp: 16 Temp: 02 Sat: 96 ECG Mon: 4. Pain Intensity: 10 5. Fall Risk: Dizziness: Y Needs help standing or walking: Y Fallen in the last 3 months: N Fall risk comments: 6. Patient on Blood Thinner: None 7. History of Hypertension: Y 8. Opioid Therapy greater than 6 weeks: Y Opiate Contract Signed: 9. Risk Assessment Tool Provided: LOW-0 10. Functional Assessment Tool: 11. Recreational Drug Use: Never Drug Type: Tobacco Use: Never Smoker Tobacco Type: Amount or Packs/day: How Many Years: Alcohol Use: No Frequency: Quant:
== END ==
LOC: PAIN 10:32
PROVIDERS: ATTEND Anesthesiology Pain Medicine
DX: M17.0 Bilateral primary osteoarthritis of knee (principal); M25.561 Pain in right knee; G89.29 Other chronic pain; Z79.899 Other long term (current) drug therapy; Z88.8 Allergy status to other drugs, medicaments and biological substances